=== PATIENT | female | born 1970 | race Caucasian/White ===

== ENCOUNTER 2020-04-01 07:00 | Emergency (ER) | payer BC, SELFPAY ==
[2020-04-01 07:04] VITALS: BP 147/82; PULSE 83; RESP 16; TEMP 36.7; O2SAT 96; BMI 44.4
--- NOTE | 2020-04-01 07:08 | W.ED.FALL ---
HPI - Fall General: Chief Complaint: Fall Stated Complaint: fall Time Seen by Provider: 04/01/20 07:07 History of Present Illness: HPI Narrative: 49-year-old female played volleyball recently and hurt her left knee then last night and this morning was unable to walk had unstable left knee actually felt like it buckled and fell she does not feel like she can walk on it safely she had previously had a knee arthroscopy done and a partial meniscectomy to the left knee. complaint: fall Onset (ago): day(s) Fall from: standing Place fall occurred: home Loss of consciousness: None Prolonged down time: no Symptoms prior to fall: none Context: other (Left knee buckled) Severity: mild Quality: sharp Associated symptoms-after fall: Reports no associated symptoms; Denies abdominal pain or chest pain Review of Systems Const: Denies: fever(s), chills, body aches, change in appetite, fatigue or malaise ENMT: Denies: throat pain, ear or mastoid pain, nasal discharge or nasal congestion Card: Denies: chest pain, edema, dyspnea on exertion or orthopnea Resp: Denies: dyspnea, productive cough or non-productive cough GI: Denies: abdominal pain, nausea, vomiting, hematemesis, coffee ground emesis, diarrhea, constipation, bloating, hematochezia or melena : Denies: flank pain, difficulty voiding, dysuria, urinary frequency or urinary urgency Musc: Reports: joint pain (Left knee) and joint swelling Skin/Breast: Denies: rash or pruritus PFSH ED PFSH: Medical History (Updated 04/01/20 @ 07:49 by Pradeep Lei DO) Coronary artery disease Myocardial infarction Surgical History (Updated 04/01/20 @ 07:49 by Pradeep eLi DO) H/O tubal ligation H/O: hysterectomy Social History (Updated 04/01/20 @ 07:49 by Pradeep Lei DO) Smoking and tobacco status: current some day smoker Alcohol intake: current Physical Exam Const: COMMON NORMALS: no acute distress GENERAL APPEARANCE: cooperative and comfortable ORIENTATION/CONSCIOUSNESS: Yes awake, Yes oriented to person, Yes oriented to place and Yes oriented to time Neck/C-Spine: COMMON NORMALS: no JVD Resp: COMMON NORMALS: normal respiratory effort, No retractions, No use of accessory muscles and clear to auscultation bilaterally AUSCULTATION: clear to auscultation bilaterally Cardio: COMMON NORMALS: no JVD, regular rate, regular rhythm and No murmurs present (Cardio) RATE: regular rate RHYTHM: regular rhythm Extremity: COMMON NORMALS: normal to inspection, capillary refill normal, no clubbing, cyanosis or edema, no calf tenderness and no pedal edema NARRATIVE EXTREMITY EXAM: Drawer and Cleve tests are negative significant laxity with medial collateral ligament on the left knee. Neuro: SENSORIUM/ORIENTATION: Yes oriented to person, Yes oriented to place and Yes oriented to time Course Vital Signs: Vital signs: Vital Signs Temperature 98.0 F 04/01/20 07:04 Pulse Rate 83 04/01/20 07:04 Respiratory Rate 16 04/01/20 07:04 Blood Pressure 147/82 04/01/20 07:04 Pulse Oximetry 96 04/01/20 07:13 MDM - Fall MDM Narrative: Medical decision making narrative: Nonweightbearing knee immobilizer and crutches. Pain medications given we will set up an outpatient MRI and refer to Ortho for medial collateral ligament tear noted on exam today. Discharge Plan Discharge Patient Disposition: Home, Self-Care Clinical Impression: Tear of medial collateral ligament of left knee Condition: Stable Prescriptions: New hydrocodone-acetaminophen 5-325 mg tablet 1 tab PO Q6H PRN (Reason: pain) Qty: 20 RF: 0 diclofenac sodium 75 mg tablet,delayed release (DR/EC) 75 mg PO Q12H PRN (Reason: pain) Qty: 20 RF: 0 Discharge Orders: Discharge Order (Routine); Ordered 04/01/20 Ordered By: Pradeep Lei Discharge Diet: Usual diet Activity Restrictions/Additional Instructions: Case management will set up an MRI and referral to orthopedics. Wear the knee brace until you are released by orthopedics Discharge Date/Time: 04/01/20 07:46 Coding Level of Care Code ED [employer] Helper for [employer] Fwd Exam Detailed
[2020-04-01 07:13] VITALS: O2SAT 96
--- NOTE | 2020-04-01 07:21 | XR_ITS ---
WS: [id number] LEFT KNEE: 3 VIEW(S) TECHNIQUE: AP, oblique(s) and lateral. HISTORY: Knee pain COMPARISON: None available. No fracture or dislocation. No joint space narrowing or osteophytes. Small suprapatellar effusion. No soft tissue abnormality. XR/XR knee LT 3V* [id number] IMPRESSION: Small joint effusion. If pain persists further evaluation by CT may be helpful to evaluate for occult fracture.
--- NOTE | 2020-04-01 13:39 | DCPLANNER ---
manager mobility had message to schedule an outpatient MRI for patient and a referral to ortho. manager mobility faxed order to centralized scheduling, will call for appointment information. manager mobility also had message to schedule a follow up appointment for patient with ortho after the MRI.
--- NOTE | 2020-04-02 15:18 | DCPLANNER ---
Patient has an MRI scheduled for Wednesday, April 08, 2020 at 11:00. financial institution manager called the ortho clinic to inform the clinic of the scheduled MRI. financial institution manager spoke with Ana María and told her that the MRI was scheduled for 04.08.20, patients information will be printed and reviewed. Clinic will call patient with appointment information.
--- NOTE | 2020-04-16 08:42 | DCPLANNER ---
Patient had a follow up appointment scheduled for 04.08.20 for an MRI - patient did attend the MRI Patient had a follow up appointment scheduled with ortho on 04.09.20 - patient did attend the ortho appointment.
== END 2020-04-01 07:46 | disposition home or self-care (01) ==
PROVIDERS: Emergency Provider Family Medicine; PCP Internal Medicine
DX: S83.412A Sprain of medial collateral ligament of left knee, initial encounter (principal); X58.XXXA Exposure to other specified factors, initial encounter; Y93.68 Activity, volleyball (beach) (court); I25.10 Atherosclerotic heart disease of native coronary artery without angina pectoris; I25.2 Old myocardial infarction; F17.210 Nicotine dependence, cigarettes, uncomplicated
CPT/HCPCS: 12345; 29530; 73562; 99282; 99283; E0114

== ENCOUNTER 2020-04-08 10:52 | Outpatient (CLI) | payer BC, SELFPAY ==
--- NOTE | 2020-04-08 11:04 | MR_ITS ---
WS: [id number] MRI LEFT KNEE HISTORY: MCL TEAR COMPARISON: 04/01/2020 Anterior cruciate ligament: There is a gap in the mid ACL consistent with a complete tear. There is a lso mild anterior subluxation of the tibia with respect to the femoral condyles. Posterior cruciate ligament: Mild buckling of the posterior cruciate ligament consistent with ACL tea r. Medial collateral ligament: Increased signal on both sides of the MCL. Greatest amount of fluid like signal is adjacent to the tibia. No buckling of the ligament. Partial tear of the distal medial colla teral ligament. Meniscus is partially extruded abutting and displacing the MCL. Posterior lateral corner structures: Intact. Medial menisci: Small caliber posterior horn with increased and abnormal signal consistent with a com plex tear. Lateral meniscus: Intact. Normal signal, size and shape. Extensor mechanism: Distal quadriceps tendon and patellar tendons are intact. Fluid and soft tissue: Small suprapatellar joint effusion. There is a large Jesus's cyst extending ov er length of at least 4.8 cm. Within the Jesus's cyst is a small loose body. There is additional flui d extending along the medial gastrocnemius inferiorly consistent with fluid and partially ruptured Ba ker's cyst. There is a moderate amount of soft tissue edema surrounding the knee. Osseous and articular structures: Patellofemoral compartment: Normal. Medial compartment: Mild narrowing of the medial compartment. Multifocal areas of cartilage loss and thinning. Medial meniscus is extruded laterally. Marrow edema in the posterior tibial plateau. Lateral compartment: Marrow edema in the posterior tibial plateau. Joint space is well preserved. MR/MR knee LT wo con* [id number] IMPRESSION: 1. Torn ACL. 2. Moderate narrowing medial compartment with complex tear posterior horn medi al meniscus and partial extrusion from the joint. 3. Partial tear distal MCL. 4. Small suprapatellar effusion. 5. Large Jesus's cyst with partial rupture. 6. Marrow edema posterior tibial plateau. No definite fracture identified.
== END 2020-04-08 10:53 | disposition home or self-care (01) ==
LOC: RADWPI 10:58
PROVIDERS: Family Provider Internal Medicine; PCP Internal Medicine; Visit Provider Family Medicine
DX: S83.412A Sprain of medial collateral ligament of left knee, initial encounter (principal); S43.52XA Sprain of left acromioclavicular joint, initial encounter; X58.XXXA Exposure to other specified factors, initial encounter; M25.462 Effusion, left knee; M71.22 Synovial cyst of popliteal space [Baker], left knee; R60.0 Localized edema
CPT/HCPCS: 73721

== ENCOUNTER 2023-01-09 07:32 | Outpatient (CLI) | payer BC, SELFPAY ==
--- NOTE | 2023-01-09 07:40 | MM_ITS ---
WS: [id number] BILATERAL SCREENING DIGITAL TOMOSYNTHESIS MAMMOGRAM WITH CAD HISTORY: SCREENING COMPARISON: 08/28/2019 and 07/31/2019 Bilateral CC and MLO views with tomosynthesis and synthetic mammography submitted. Computer aided det ection analyzed. Breast composition: There are scattered areas of fibroglandular density. No suspicious masses, microc alcifications or architectural distortion. No suspicious masses or calcifications are identified toda y. Benign calcifications in each breast. MM/[place] [id number] IMPRESSION: BI-RADS: 2-Benign FOLLOW UP: 1 Year Follow-up
== END 2023-01-09 07:33 | disposition home or self-care (01) ==
LOC: RAD 07:35
PROVIDERS: Family Provider Internal Medicine; PCP Internal Medicine; Visit Provider Internal Medicine
DX: Z12.31 Encounter for screening mammogram for malignant neoplasm of breast (principal)
CPT/HCPCS: 77063; 77067

== ENCOUNTER 2024-01-12 08:44 | Outpatient (CLI) | payer BC, SELFPAY ==
--- NOTE | 2024-01-12 08:54 | MM_ITS ---
WS: [id number] BILATERAL 3D TOMOSYNTHESIS DIGITAL SCREENING MAMMOGRAPHY WITH CAD CLINICAL INFORMATION: SCREENING HISTORY: Screening mammogram. No current complaints. COMPARISON: 2022 TECHNIQUE: Bilateral CC and MLO views. FINDINGS: Scattered fibroglandular densities bilaterally. New ovoid nodule upper outer RIGHT breast measuring 8 mm may present an intramammary lymph node but indeterminate. Recommend further evaluation with RIGHT breast diagnostic mammography and ultrasound. Unremarkable LEFT breast. MM/[place] [id number] IMPRESSION: BI-RADS: 0-Incomplete: Need additional imaging evaluation FOLLOW UP: Need Additional Imaging Recommend RIGHT breast diagnostic mammography and ultrasound.
== END 2024-01-12 08:45 | disposition home or self-care (01) ==
LOC: RAD 08:45
PROVIDERS: Family Provider Internal Medicine; PCP Internal Medicine; Visit Provider Internal Medicine
DX: Z12.31 Encounter for screening mammogram for malignant neoplasm of breast (principal); N63.11 Unspecified lump in the right breast, upper outer quadrant
CPT/HCPCS: 77063; 77067

== ENCOUNTER 2024-02-12 13:35 | Outpatient (CLI) | payer BC, SELFPAY ==
--- NOTE | 2024-02-12 13:41 | MM_ITS ---
WS: [id number] RIGHT 3D TOMOSYNTHESIS DIGITAL MAMMOGRAPHY WITH CAD CLINICAL INFORMATION: ABNORMAL MAMMO HISTORY: Additional views COMPARISON: 01/12/2024 TECHNIQUE: 3 views of the right breast were obtained. FINDINGS: Scattered fibroglandular densities of the right breast. Again seen is the 8 mm ovoid nodule upper out er RIGHT breast. This persists on the spot compression views. Ultrasound is pending. ULTRASOUND BREAST RIGHT TECHNIQUE: Ultrasound right breast focused area of concern. CLINICAL INFORMATION: ABNORMAL MAMMO FINDINGS: Ultrasound RIGHT breast at the 10 o'clock position 7 cm from the nipple demonstrates a small hypoecho ic ovoid lesion with a solid appearance. This is taller than wide and measures 6 x 5 x 5 mm and is in determinate. This demonstrates shadowing and has a suspicious appearance. Recommend further evaluatio n with ultrasound-guided biopsy. MM/[place] [id number] IMPRESSION: BI-RADS: 4-Suspicious Finding-Biopsy Should Be Considered FOLLOW UP: US Guided Biopsy Recommended Recommend ultrasound-guided biopsy of the small ovoid RIGHT breast lesion
== END 2024-02-12 13:36 | disposition home or self-care (01) ==
LOC: RAD 13:36
PROVIDERS: PCP Internal Medicine; Visit Provider Internal Medicine
DX: R92.2 Inconclusive mammogram (principal); R92.323 Mammographic fibroglandular density, bilateral breasts; N63.11 Unspecified lump in the right breast, upper outer quadrant
CPT/HCPCS: 76642; 77061; G0279

== ENCOUNTER → 2024-02-28 12:12 | Outpatient (CLI) | payer BC, SELFPAY ==
--- NOTE | 2024-02-28 13:15 | US_ITS ---
WS: [id number] ULTRASOUND-GUIDED RIGHT BREAST BIOPSY CLINICAL INFORMATION: ABNORMAL MAMMO FINDINGS: The procedure including risks, benefits, and complications were discussed with the patient who agreed to proceed. Using sterile technique patient was prepped and draped in the usual sterile fashion. Aft er 1% lidocaine utilizing real-time ultrasound guidance four 14-gauge cores were obtained of the RIGH T breast lesion at the 10 o'clock position 7 cm from the nipple. Subsequently a titanium clip was jay lore in the biopsy cavity. No immediate complications. Note the small ovoid lesion was difficult to vi sualize and biopsy due to size and dense surrounding breast tissue Pathology demonstrates fibrocystic changes with ductal ectasia. No evidence of malignancy. US/[place] [id number] IMPRESSION: 1. Uncomplicated ultrasound-guided RIGHT breast biopsy. 2. The pathology demonstrates fibrocystic change with ductal ectasia. Negative for malignancy. Pathology is benign. 3. Small lesion was difficult to visualize and biopsy. Recommend 6-month follo w-up RIGHT breast diagnostic mammography with ultrasound to confirm stability o f the small ovoid lesion BI-RADS: 2-Benign FOLLOW UP: 6 Month Follow-up
== END | disposition home or self-care (01) ==
LOC: RAD 12:11
PROVIDERS: PCP Internal Medicine; Visit Provider Internal Medicine
DX: R92.2 Inconclusive mammogram (principal); N60.21 Fibroadenosis of right breast; N60.41 Mammary duct ectasia of right breast
CPT/HCPCS: 19083; 88305; 88342

== ENCOUNTER 2025-01-30 07:30 | Outpatient (CLI) | payer BC, SELFPAY ==
--- NOTE | 2025-01-30 07:40 | CT_ITS ---
WS: [id number] LDCT LUNG CANCER SCREENING TECHNIQUE: Noncontrast CT of the chest with coronal and sagittal reformatted images. CLINICAL INFORMATION: HX OF TOBACCO USE COMPARISON: None. DLP: 117.43 mGy.cm DIvol: Mean CTDIvol: 3.00 (mGy) All CT scans at [facility] use at least one of these dose optimization techniques: automated exposure control; mA and/or kV adjustment per patient size (includes targeted exams where dose is matched to clinical indication); or iterative reconstruction. FINDINGS: Calcified granuloma RIGHT upper lobe anteriorly. Lungs are well aerated. No acute pulmonary infiltrates. Normal caliber thoracic aorta. No mediastinal or hilar lymphadenopathy. Adrenal glands are normal. Cardiomegaly. CT/CT lung screening [id number] IMPRESSION: LUNG-RADS: 2-Benign Appearance or Behavior FOLLOW UP: 12 Month: Continue annual screening with LDCT
== END 2025-01-30 07:31 | disposition home or self-care (01) ==
LOC: RAD 07:31
PROVIDERS: PCP Nurse Practitioner Family; Visit Provider Nurse Practitioner Family
DX: Z12.2 Encounter for screening for malignant neoplasm of respiratory organs (principal); Z87.891 Personal history of nicotine dependence; J84.10 Pulmonary fibrosis, unspecified; I51.7 Cardiomegaly
CPT/HCPCS: 71271

== ENCOUNTER 2025-05-14 07:57 | Outpatient (CLI) | payer BC, SELFPAY ==
--- NOTE | 2025-05-14 | MM_ITS ---
WS: [id number] SCREENING DIGITAL BREAST TOMOSYNTHESIS MAMMOGRAM WITH CAD HISTORY: ANNUAL SCREENING COMPARISON: 02/12/2024, 01/12/2024, 01/09/2023, biopsy RIGHT breast 02/28/2024. Bilateral CC and MLO with tomosynthesis and synthetic mammography submitted. Computer aided detection analyzed. Breast composition: There are scattered areas of fibroglandular density. Previously described high density mass is reidentified in the upper outer quadrant of the RIGHT breast. This mass was previously biopsied on 02/28/2024. There is a biopsy clip present but this biopsy clip is 3.3 cm anterior to the mass. There has been no increase in size of the mass or interval change. There are a few benign scattered calcifications. MM/MM scr BI tomosynthesis [id number] IMPRESSION: BI-RADS: 0 - Incomplete: Need additional imaging evaluation. FOLLOW UP: Need Additional Imaging Recommendation: RIGHT breast ultrasound. Ultrasound upper outer quadrant of the RIGHT breast to reidentify the mass in the posterior breast which has undergon e recent biopsy. The biopsy clip is 3.3 cm from the mass. This clip may have mi grated after the biopsy and clip placement.
== END 2025-05-14 07:58 | disposition home or self-care (01) ==
LOC: RAD 07:58
PROVIDERS: PCP Nurse Practitioner Family; Visit Provider Nurse Practitioner Family
DX: Z12.31 Encounter for screening mammogram for malignant neoplasm of breast (principal); R92.323 Mammographic fibroglandular density, bilateral breasts; N63.11 Unspecified lump in the right breast, upper outer quadrant; Z96.89 Presence of other specified functional implants; R92.1 Mammographic calcification found on diagnostic imaging of breast
CPT/HCPCS: 77063; 77067

== ENCOUNTER 2025-06-02 09:51 | Outpatient (CLI) | payer BC, SELFPAY ==
--- NOTE | 2025-06-02 09:59 | US_ITS ---
WS: [id number] ULTRASOUND RIGHT BREAST HISTORY: Follow-up small breast mass which has been previously biopsied. The biopsy clip is approximately 3.3 cm distal to the lesion which may indicate migration. COMPARISON: 02/28/2024, 02/12/2024, mammogram 05/14/2025, 02/12/2024 and 01/14/2024 TECHNIQUE: 2-D and Doppler. Mammographic lesion is not definitely identified. This may potentially be a small lymph node which is not visible. There is a very small hypoechoic area at 10:00, 4 cm from nipple measuring 5 x 5 x 3 mm which could potentially represent the breast lesion. US/US breast RT limited* [id number] IMPRESSION: BI-RADS: 3- Probably Benign FOLLOW-UP: 6 Month Follow-up Recommend diagnostic RIGHT mammogram in 6 months and possible RIGHT breast ultr asound follow-up. Discussed findings and follow-up with the patient at the time of the ultrasound .
== END 2025-06-02 09:52 | disposition home or self-care (01) ==
LOC: RAD 09:52
PROVIDERS: PCP Nurse Practitioner Family; Visit Provider Nurse Practitioner Family
DX: R92.8 Other abnormal and inconclusive findings on diagnostic imaging of breast (principal)
CPT/HCPCS: 76642